=== PATIENT | male | born 1945 | race Caucasian/White ===

== ENCOUNTER 2016-04-30 06:26 | Inpatient (IN) | payer OTHER, BC ==
[~2016-04-30] VITALS: Ht 182.9 cm; Wt 108.2 kg
[~2016-04-30 06:26] MED LIST: ACCOLATE20 MG PO; ADULT LOW DOSE81 M1 PO; ADVAIR 100-501 EACH IH; ADVAIR 250/501 DISK IH; ALBUTEROL SULF8.5 GM IH; ALBUTEROL17 GM IH; ALTACE10 MG PO; AMLODIPINE BESYL5 MG PO; ARICEPT10 MG PO; ASPIR 8181 M1 PO; ASPIR 8181 MG PO; ATROVENT 00.5 MG/2.5 IH; BUDESONIDE0.5 MG/2 M IH; COZAAR50 MG PO; DUONEB 2.5-0.5 M3 ML IH; FLONASE16 G1 BOTH NARES; FLONASE16 GM NS; GLIPIZIDE XL10 MG PO; GLIPIZIDE XL5 MG PO; GLUCOPHAGE1000 MG PO; GLUCOPHAGE500 MG PO; GLUCOTROL XL10 MG PO; LEVAQUIN500 MG PO; LOSARTAN POTASS50 MG PO; OMEPRAZOLE40 M1 PO; PREDNISONE10 MG PO; PREDNISONE20 MG PO; PREVACID30 MG PO; PROAIR RESPICL90 MCG IH; QUALAQUIN324 MG PO; SIMVASTATIN80 MG PO; SPIRIVA1 INHALATI IH; TAMIFLU75 MG PO; THEO-DUR,THEOC200 MG PO; VENTOLIN HFA18 GM IH; VENTOLIN17 GM IH; VENTOLIN5 MG/1 ML; VITAMIN B-12500 MC5 SL; Vibramycin, Doryx PO; ZITHROMAX250 MG PO; ZOCOR80 MG PO; ZOFRAN4 MG PO; albuterol sulfate IH; predniSONE PO
[2016-04-30 07:16] LABS: EOSINOPHIL (%) 5.1 % (0-5); EOSINOPHIL COUNT 0.4 K/uL (0-0.3); HEMATOCRIT 42.7 % (38.0-50.0); IMMATURE GRANULOCYTE (%) 0.1 % (0.0-0.7); IMMATURE GRANULOCYTE COUNT 0.1 K/uL; LYMPHOCYTE COUNT 2.2 K/uL (1.0-2.8); MCH 32.4 PG (29.0-34.0); MCHC 35.1 G/DL (30.0-36.0); MCV 92.2 FL (86-99); MEAN PLAT.VOLUME 9.1 uM^3 (9.0-12.4); MONOCYTE (%) 9.1 % (3-12); MONOCYTE COUNT 0.7 K/uL (0-0.8); NEUTROPHIL (%) 55.7 % (45-76); NEUTROPHIL COUNT 4.2 K/uL (1.8-6.4); PLATELET COUNT 243 K/uL (156-360); RBC DIS.WIDTH-CV 12.7 % (11.8-14.6); RBC DIS.WIDTH-SD 41.7 % (39-53); RED BLOOD COUNT 4.63 M/uL (4.00-5.50); WHITE BLOOD COUNT 7.5 K/uL (4.1-10.2)
[2016-04-30 07:28] LABS: PROTHROMBIN TIME 10.6 (9.2-11.2); PTT 27.4 (25-32)
[2016-04-30 07:44] LABS: AMYLASE 28 IU/L (1-118); ANION GAP 10 MEQ/L (2-14); CHLORIDE 101 MEQ/L (99-109); POTASSIUM 4.5 MEQ/L (3.7-5.4); SAMPLE HEMOLYSIS CHECK 0; SAMPLE ICTERIC CHECK 0; SAMPLE LIPEMIA CHECK 0; SODIUM 139 MEQ/L (136-147)
[2016-04-30 07:49] LABS: TROP-I INTERPRETATION INDETERMINATE
[2016-04-30 07:54] LABS: TROPONIN-I 0.59 ng/mL (0.0-0.30)
[2016-04-30 08:09] LABS: GFR ESTIMATE (CALCULATED) 58 mL/min/; GLUCOSE 307 mg/dL (70-99); LIPASE 37 U/L (1.0-51.0); SERUM ETHYL ALCOHOL < 10 mg/dL; UREA NITROGEN (BUN) 23 mg/dL (9-23)
[2016-04-30] MEDS ORDERED: REMERON15 M2 PO (09:08)
[2016-04-30] MEDS ORDERED: NORCO 5/3251 TABLET PO (09:09)
[2016-04-30] MEDS ORDERED: CENTRUM SILVER1 EAC5 PO (09:10)
[2016-04-30] MEDS ORDERED: ZANAFLEX4 M1 PO (09:11)
[2016-04-30 12:06] LABS: TROP-I INTERPRETATION POSITIVE
[2016-04-30 12:13] LABS: TROPONIN-I 6.29 ng/mL (0.0-0.30)
[2016-04-30 15:09] LABS: POINT-OF-CARE METER ID UU13113819
[2016-04-30 18:05] LABS: POINT-OF-CARE METER ID UU13113819
[2016-04-30 19:30] VITALS: BP 143/92
[2016-04-30 19:51] VITALS: BP 143/92
[2016-04-30 20:15] LABS: TROP-I INTERPRETATION POSITIVE
[2016-04-30 20:17] LABS: TROPONIN-I 41.12 ng/mL (0.0-0.30)
[2016-04-30 22:11] LABS: POINT-OF-CARE METER ID UU13113781
[2016-05-01] VITALS: BP 131/77
[2016-05-01 04:00] VITALS: BP 128/78
[2016-05-01 06:42] LABS: HEMATOCRIT 40.3 % (38.0-50.0); MCH 32.2 PG (29.0-34.0); MCHC 34.2 G/DL (30.0-36.0); MCV 94.2 FL (86-99); PLATELET COUNT 198 K/uL (156-360); RBC DIS.WIDTH-CV 12.8 % (11.8-14.6); RBC DIS.WIDTH-SD 43.7 % (39-53); RED BLOOD COUNT 4.28 M/uL (4.00-5.50); WHITE BLOOD COUNT 8.6 K/uL (4.1-10.2)
[2016-05-01 07:30] LABS: ANION GAP 8 MEQ/L (2-14); CHLORIDE 105 MEQ/L (99-109); GFR ESTIMATE (CALCULATED) > 59 mL/min/; GLUCOSE 209 mg/dL (70-99); POTASSIUM 4.6 MEQ/L (3.7-5.4); SAMPLE HEMOLYSIS CHECK 1; SAMPLE ICTERIC CHECK 0; SAMPLE LIPEMIA CHECK 0; SODIUM 136 MEQ/L (136-147); UREA NITROGEN (BUN) 17 mg/dL (9-23)
[2016-05-01] MEDS ORDERED: CLOPIDOGREL75 MG PO (12:16)
[2016-05-01] MEDS ORDERED: LOPRESSOR25 MG PO (12:16)
[2016-05-01] MEDS ORDERED: NITROSTAT0.4 MG SL (12:16)
[2016-05-01] MEDS ORDERED: NOVOLOG PE100 UNITS/ SC (12:17)
[2016-05-01] MEDS ORDERED: DIOVAN80 MG PO (12:21)
== END 2016-05-01 14:13 | disposition short-term general hospital (02) | DRG 282 ==
LOC: EME → EDBD 06:26 → EME 06:26 → EDOF 08:53 → 4EAST 19:26
PROVIDERS: Emergency Medicine; Family Medicine; Internal Medicine Cardiovascular Disease
DX: I21.4 Non-ST elevation (NSTEMI) myocardial infarction (principal); I25.110 Atherosclerotic heart disease of native coronary artery with unstable angina pectoris; E11.65 Type 2 diabetes mellitus with hyperglycemia; I25.84 Coronary atherosclerosis due to calcified coronary lesion; I35.0 Nonrheumatic aortic (valve) stenosis; J44.9 Chronic obstructive pulmonary disease, unspecified; I10 Essential (primary) hypertension; F03.90 Unspecified dementia, unspecified severity, without behavioral disturbance, psychotic disturbance, mood disturbance, and anxiety; E78.5 Hyperlipidemia, unspecified; E66.9 Obesity, unspecified; Z68.32 Body mass index [BMI] 32.0-32.9, adult; Z87.891 Personal history of nicotine dependence; Z86.73 Personal history of transient ischemic attack (TIA), and cerebral infarction without residual deficits; Z85.828 Personal history of other malignant neoplasm of skin
CPT/HCPCS: 80048; 81003; 82150; 82948; 83690; 84484; 85025; 85027; 85610; 85730; 86850; 86900; 86901; 93005; 93306; 94640; 94640 76; 99202; 99281; 99285; C1750; C1769; C1887; G0480; J1644; J1815; J2250; J2270; J3010; J7030; J7050

== ENCOUNTER 2016-09-15 18:51 | Emergency (ER) | payer OTHER, BC ==
[~2016-09-15] VITALS: Ht 182.9 cm; Wt 99.0 kg
[~2016-09-15 18:51] MED LIST changes: +CENTRUM SILVER1 EAC5 PO; +CLOPIDOGREL75 MG PO; +DIOVAN80 MG PO; +LOPRESSOR25 MG PO; +NITROSTAT0.4 MG SL; +NORCO 5/3251 TABLET PO; +NOVOLOG PE100 UNITS/ SC; +REMERON15 M2 PO; +ZANAFLEX4 M1 PO
[2016-09-15 19:19] LABS: HEMATOCRIT 42.6 % (38.0-50.0); MCH 31.9 PG (29.0-34.0); MCHC 34.7 G/DL (30.0-36.0); MCV 91.8 FL (86-99); PLATELET COUNT 217 K/uL (156-360); RBC DIS.WIDTH-CV 13.1 % (11.8-14.6); RBC DIS.WIDTH-SD 44.1 % (39-53); RED BLOOD COUNT 4.64 M/uL (4.00-5.50); WHITE BLOOD COUNT 7.5 K/uL (4.1-10.2)
[2016-09-15 19:26] LABS: CHLORIDE 109 mEq/L (99-109); POTASSIUM 3.5 mEq/L (3.7-5.4); SODIUM 140 mEq/L (136-147)
[2016-09-15 19:29] LABS: GLUCOSE 210 mg/dL (70-99)
[2016-09-15 19:30] LABS: ANION GAP 14 MEQ/L (2-14)
[2016-09-15 19:31] LABS: TOTAL BILIRUBIN 0.4 mg/dL (0.0-1.0)
[2016-09-15 19:32] LABS: ALKALINE PHOSPHATASE 81 IU/L (3-129); SERUM ETHYL ALCOHOL 205 mg/dL
[2016-09-15 19:33] LABS: GFR ESTIMATE (CALCULATED) 35 mL/min/
[2016-09-15 19:34] LABS: UREA NITROGEN (BUN) 22 mg/dL (9-23)
[2016-09-15 20:41] LABS: ADD MIUA? YES; BILIRUBIN NEGATIVE; BLOOD MODERATE; COLOR STRAW ((YELLOW)); GLUCOSE (STRIP) >=500; KETONES NEGATIVE; LEUKOCYTES NEGATIVE; NITRITE NEGATIVE; PROTEIN (STRIP) 30; SPECIFIC GRAVITY 1.005 (1.000-1.030); UROBILINOGEN 0.2 MG/DL (0.2-1.0)
[2016-09-15 21:05] LABS: AMPHETAMINE NEGATIVE (500 ng/mL); BARBITURATES NEGATIVE (200 ng/mL); BENZODIAZEPINES NEGATIVE (150 ng/mL); COCAINE NEGATIVE (150 ng/mL); INTERNAL CONTROLS VALID? YES; METHADONE NEGATIVE (200 ng/mL); METHAMPHETAMINE NEGATIVE (500 ng/mL); OPIATES (MORPHINE) NEGATIVE (100 ng/mL); OXYCODONE NEGATIVE (100 ng/mL); PHENCYCLIDINE NEGATIVE (25 ng/mL); PROPOXYPHENE NEGATIVE (300 ng/mL); THC CANNABINOIDS NEGATIVE (50 ng/mL); TRICYCLIC ANTIDEPRESSANTS NEGATIVE (300 ng/mL)
[2016-09-15 21:07] LABS: BACTERIA RARE /HPF; EPITHELIAL CELLS RARE /HPF; MUCUS TRACE /LPF; RED BLOOD CELLS 0-5 /HPF (0-5); WHITE BLOOD CELLS 0-5 /HPF (0-5)
[2016-09-15 21:11] LABS: CASTS PRESENT /LPF; GRANULAR CASTS RARE /LPF
[2016-09-16 00:36] VITALS: BP 159/83
== END 2016-09-16 00:49 | disposition home or self-care (01) ==
LOC: EME 18:51
PROVIDERS: Emergency Medicine
DX: F32.9 Major depressive disorder, single episode, unspecified (principal); F10.129 Alcohol abuse with intoxication, unspecified; Y90.7 Blood alcohol level of 200-239 mg/100 ml; R45.851 Suicidal ideations; J44.9 Chronic obstructive pulmonary disease, unspecified; E78.5 Hyperlipidemia, unspecified; I10 Essential (primary) hypertension; I25.2 Old myocardial infarction; K21.9 Gastro-esophageal reflux disease without esophagitis; Z86.73 Personal history of transient ischemic attack (TIA), and cerebral infarction without residual deficits; Z79.82 Long term (current) use of aspirin; Z87.891 Personal history of nicotine dependence
CPT/HCPCS: 80053; 81003; 85027; 90837; 99281; 99285; G0480

== ENCOUNTER 2017-11-15 00:03 | Emergency (ER) | payer OTHER, BC ==
[~2017-11-15] VITALS: Ht 182.9 cm; Wt 114.0 kg
[~2017-11-15 00:03] MED LIST changes: +CRESTOR40 MG PO; -ZOCOR80 MG PO
[2017-11-15 00:40] LABS: BASOPHIL (%) 1.1 % (0-1); BASOPHIL COUNT 0.1 K/uL (0-0.1); EOSINOPHIL COUNT 0.6 K/uL (0-0.3); HEMATOCRIT 37.7 % (38.0-50.0); HEMOGLOBIN 12.7 G/DL (12.5-16.6); IMMATURE GRANULOCYTE (%) 0.3 % (0.0-0.7); LYMPHOCYTE (%) 37.6 % (15-42); LYMPHOCYTE COUNT 2.4 K/uL (1.0-2.8); MCH 31.8 PG (29.0-34.0); MCHC 33.7 G/DL (30.0-36.0); MCV 94.5 FL (86-99); MONOCYTE (%) 10.1 % (3-12); MONOCYTE COUNT 0.6 K/uL (0-0.8); NEUTROPHIL (%) 41.9 % (45-76); NEUTROPHIL COUNT 2.7 K/uL (1.8-6.4); PLATELET COUNT 206 K/uL (156-360); RBC DIS.WIDTH-CV 13.2 % (11.8-14.6); RBC DIS.WIDTH-SD 46.5 % (39-53); RED BLOOD COUNT 3.99 M/uL (4.00-5.50); WHITE BLOOD COUNT 6.3 K/uL (4.1-10.2)
[2017-11-15 00:52] LABS: PTT 25.3 SEC (25-37)
[2017-11-15 01:03] LABS: TROP-I INTERPRETATION NEGATIVE; TROPONIN-I 0.04 ng/mL (0.0-0.30)
[2017-11-15 01:06] LABS: ALBUMIN 3.8 G/DL (3.2-4.8); ALKALINE PHOSPHATASE 59 IU/L (3-129); ALT (GPT) 23 IU/L (3-49); AST (GOT) 26 IU/L (2-34); CHLORIDE 103 MEQ/L (99-109); DIRECT BILIRUBIN 0.2 mg/dL (0.0-0.3); GLUCOSE 149 mg/dL (70-99); POTASSIUM 3.7 MEQ/L (3.7-5.4); SODIUM 138 MEQ/L (136-147); TOTAL BILIRUBIN 0.6 MG/DL (0.0-1.0); TOTAL PROTEIN 6.2 G/DL (6.4-8.3); UREA NITROGEN (BUN) 18 mg/dL (9-23)
[2017-11-15 01:59] LABS: CREATININE 1.7 MG/DL (0.6-1.3); GFR ESTIMATE (CALCULATED) 42 mL/min/ (58.99-99999)
[2017-11-15] MEDS ORDERED: PREDNISONE50 MG PO (02:33)
[2017-11-15 02:45] VITALS: BP 130/82
[2017-11-15] MEDS ORDERED: PROVENTIL,2.5 MG/3 M IH (16:18)
[2017-11-15] MEDS ORDERED: ADVIL,NUPRIN,M200 MG PO (16:29)
[2017-11-15] MEDS ORDERED: LANTUS 3 M100 UNITS1 SC ×4 (16:42→17:17)
[2017-11-15] MEDS ORDERED: IPRATROPIUM BRO30 ML BOTH NARES (17:10)
[2017-11-15] MEDS ORDERED: METOPROLOL SUCC50 MG PO (17:11)
[2017-11-15] MEDS ORDERED: ATROVENT 00.5 MG/2.5 IH (17:16)
[2017-11-15] MEDS ORDERED: VIAGRA100 MG PO (17:18)
[2017-11-15] MEDS ORDERED: SAW PALMETTO160 MG PO (17:19)
[2017-11-15] MEDS ORDERED: ALLEGRA60 MG PO (17:20)
== END 2017-11-15 02:57 | disposition home or self-care (01) ==
LOC: EME 00:03
PROVIDERS: Emergency Medicine
DX: J44.1 Chronic obstructive pulmonary disease with (acute) exacerbation (principal); I45.10 Unspecified right bundle-branch block; R94.31 Abnormal electrocardiogram [ECG] [EKG]; R91.8 Other nonspecific abnormal finding of lung field; I10 Essential (primary) hypertension; E11.9 Type 2 diabetes mellitus without complications; K21.9 Gastro-esophageal reflux disease without esophagitis; E78.5 Hyperlipidemia, unspecified; I25.2 Old myocardial infarction; F03.90 Unspecified dementia, unspecified severity, without behavioral disturbance, psychotic disturbance, mood disturbance, and anxiety; Z79.82 Long term (current) use of aspirin; Z79.84 Long term (current) use of oral hypoglycemic drugs; Z87.891 Personal history of nicotine dependence; Z86.73 Personal history of transient ischemic attack (TIA), and cerebral infarction without residual deficits; Z85.828 Personal history of other malignant neoplasm of skin
CPT/HCPCS: 71046; 80048; 80076; 83605; 83880; 84484; 85025; 85610; 85730; 93005; 94640; 99281; 99285; J2930

== ENCOUNTER 2017-11-15 09:46 | Inpatient (IN) | payer OTHER, BC ==
[~2017-11-15] VITALS: Ht 182.9 cm; Wt 114.0 kg
[~2017-11-15 09:46] MED LIST changes: +PREDNISONE50 MG PO
[2017-11-15 10:32] LABS: HEMATOCRIT 40.7 % (38.0-50.0); HEMOGLOBIN 13.8 G/DL (12.5-16.6); MCHC 33.9 G/DL (30.0-36.0); MCV 94.4 FL (86-99); PLATELET COUNT 235 K/uL (156-360); RBC DIS.WIDTH-CV 13.1 % (11.8-14.6); RBC DIS.WIDTH-SD 44.9 % (39-53); RED BLOOD COUNT 4.31 M/uL (4.00-5.50); WHITE BLOOD COUNT 6.8 K/uL (4.1-10.2)
[2017-11-15 10:56] LABS: CHLORIDE 103 MEQ/L (99-109); SODIUM 138 MEQ/L (136-147)
[2017-11-15 10:59] LABS: POTASSIUM 4.9 MEQ/L (3.7-5.4)
[2017-11-15 11:01] LABS: CREATININE 1.6 MG/DL (0.6-1.3); GFR ESTIMATE (CALCULATED) 46 mL/min/ (58.99-99999); UREA NITROGEN (BUN) 20 mg/dL (9-23)
[2017-11-15 11:05] LABS: GLUCOSE 246 mg/dL (70-99)
[2017-11-15 15:06] VITALS: BP 168/80
[2017-11-15] MEDS ORDERED: PROVENTIL,2.5 MG/3 M IH (16:18)
[2017-11-15] MEDS ORDERED: ADVIL,NUPRIN,M200 MG PO (16:29)
[2017-11-15] MEDS ORDERED: LANTUS 3 M100 UNITS1 SC ×4 (16:42→17:17)
[2017-11-15] MEDS ORDERED: IPRATROPIUM BRO30 ML BOTH NARES (17:10)
[2017-11-15] MEDS ORDERED: METOPROLOL SUCC50 MG PO (17:11)
[2017-11-15] MEDS ORDERED: ATROVENT 00.5 MG/2.5 IH (17:16)
[2017-11-15] MEDS ORDERED: VIAGRA100 MG PO (17:18)
[2017-11-15] MEDS ORDERED: SAW PALMETTO160 MG PO (17:19)
[2017-11-15] MEDS ORDERED: ALLEGRA60 MG PO (17:20)
[2017-11-15 19:38] VITALS: BP 141/84
[2017-11-15 23:27] VITALS: BP 147/78
[2017-11-16 04:58] VITALS: BP 147/74
[2017-11-16 05:39] LABS: BASOPHIL (%) 0.1 % (0-1); EOSINOPHIL (%) 0 % (0-5); HEMATOCRIT 37.4 % (38.0-50.0); HEMOGLOBIN 12.4 G/DL (12.5-16.6); IMMATURE GRANULOCYTE (%) 0.8 % (0.0-0.7); LYMPHOCYTE COUNT 0.8 K/uL (1.0-2.8); MCH 31.6 PG (29.0-34.0); MCHC 33.2 G/DL (30.0-36.0); MCV 95.4 FL (86-99); MONOCYTE (%) 2.8 % (3-12); MONOCYTE COUNT 0.2 K/uL (0-0.8); NEUTROPHIL (%) 86.3 % (45-76); NEUTROPHIL COUNT 7.1 K/uL (1.8-6.4); PLATELET COUNT 220 K/uL (156-360); RBC DIS.WIDTH-SD 45.1 % (39-53); RED BLOOD COUNT 3.92 M/uL (4.00-5.50); WHITE BLOOD COUNT 8.2 K/uL (4.1-10.2)
[2017-11-16 05:58] LABS: CHLORIDE 104 MEQ/L (99-109); CREATININE 1.4 MG/DL (0.6-1.3); GFR ESTIMATE (CALCULATED) 53 mL/min/ (58.99-99999); GLUCOSE 300 mg/dL (70-99); POTASSIUM 4.7 MEQ/L (3.7-5.4); SODIUM 138 MEQ/L (136-147); UREA NITROGEN (BUN) 23 mg/dL (9-23)
[2017-11-16 07:33] VITALS: BP 129/69
[2017-11-16 11:18] VITALS: BP 140/67
[2017-11-16 15:57] VITALS: BP 119/66
[2017-11-16 19:15] VITALS: BP 127/58
[2017-11-16 23:31] VITALS: BP 130/68
[2017-11-17 06:14] LABS: BASOPHIL (%) 0 % (0-1); EOSINOPHIL (%) 0 % (0-5); HEMATOCRIT 39.1 % (38.0-50.0); HEMOGLOBIN 13.1 G/DL (12.5-16.6); IMMATURE GRANULOCYTE (%) 0.6 % (0.0-0.7); LYMPHOCYTE (%) 7.8 % (15-42); LYMPHOCYTE COUNT 0.8 K/uL (1.0-2.8); MCH 31.8 PG (29.0-34.0); MCHC 33.5 G/DL (30.0-36.0); MCV 94.9 FL (86-99); MONOCYTE (%) 4.6 % (3-12); MONOCYTE COUNT 0.5 K/uL (0-0.8); NEUTROPHIL COUNT 9.2 K/uL (1.8-6.4); PLATELET COUNT 243 K/uL (156-360); RBC DIS.WIDTH-CV 13.1 % (11.8-14.6); RBC DIS.WIDTH-SD 45.3 % (39-53); RED BLOOD COUNT 4.12 M/uL (4.00-5.50); WHITE BLOOD COUNT 10.5 K/uL (4.1-10.2)
[2017-11-17 06:31] LABS: CHLORIDE 103 MEQ/L (99-109); CREATININE 1.6 MG/DL (0.6-1.3); GFR ESTIMATE (CALCULATED) 46 mL/min/ (58.99-99999); GLUCOSE 373 mg/dL (70-99); SODIUM 136 MEQ/L (136-147); UREA NITROGEN (BUN) 34 mg/dL (9-23)
[2017-11-17 07:54] VITALS: BP 141/64
[2017-11-17 17:31] VITALS: BP 149/84
[2017-11-17 23:43] VITALS: BP 147/71
[2017-11-18 05:57] LABS: BASOPHIL (%) 0 % (0-1); EOSINOPHIL (%) 0 % (0-5); HEMATOCRIT 38.6 % (38.0-50.0); IMMATURE GRANULOCYTE (%) 0.8 % (0.0-0.7); LYMPHOCYTE (%) 6.2 % (15-42); LYMPHOCYTE COUNT 0.6 K/uL (1.0-2.8); MCH 31.7 PG (29.0-34.0); MCHC 33.7 G/DL (30.0-36.0); MCV 94.1 FL (86-99); MONOCYTE (%) 4.7 % (3-12); MONOCYTE COUNT 0.5 K/uL (0-0.8); NEUTROPHIL (%) 88.3 % (45-76); NEUTROPHIL COUNT 8.7 K/uL (1.8-6.4); PLATELET COUNT 264 K/uL (156-360); RBC DIS.WIDTH-CV 12.9 % (11.8-14.6); RBC DIS.WIDTH-SD 44.6 % (39-53); WHITE BLOOD COUNT 9.8 K/uL (4.1-10.2)
[2017-11-18 06:24] LABS: CHLORIDE 101 MEQ/L (99-109); CREATININE 1.6 MG/DL (0.6-1.3); GFR ESTIMATE (CALCULATED) 46 mL/min/ (58.99-99999); GLUCOSE 395 mg/dL (70-99); POTASSIUM 4.9 MEQ/L (3.7-5.4); SODIUM 137 MEQ/L (136-147); UREA NITROGEN (BUN) 35 mg/dL (9-23)
[2017-11-18 08:36] VITALS: BP 148/79
[2017-11-18 13:30] VITALS: BP 162/71
[2017-11-18] MEDS ORDERED: PREDNISONE10 MG PO (13:46)
[2017-11-18] MEDS ORDERED: LEVAQUIN500 MG PO (13:46)
[2017-11-18 14:00] LABS: GLUCOSE 508 mg/dL (70-99)
== END 2017-11-18 18:38 | disposition home or self-care (01) | DRG 190 ==
LOC: EME 09:46 → 3EAST 12:50 → EDOF 12:50 → ENRESERV 12:59 → CANRESERV 12:59 → ENRESERV 13:29 → 3EAST 14:26
PROVIDERS: Family Medicine
DX: J44.1 Chronic obstructive pulmonary disease with (acute) exacerbation (principal); J18.9 Pneumonia, unspecified organism; J44.0 Chronic obstructive pulmonary disease with (acute) lower respiratory infection; E11.9 Type 2 diabetes mellitus without complications; E78.5 Hyperlipidemia, unspecified; E66.9 Obesity, unspecified; I25.10 Atherosclerotic heart disease of native coronary artery without angina pectoris; I10 Essential (primary) hypertension; F03.90 Unspecified dementia, unspecified severity, without behavioral disturbance, psychotic disturbance, mood disturbance, and anxiety; I25.2 Old myocardial infarction; Z68.34 Body mass index [BMI] 34.0-34.9, adult; Z91.5 Personal history of self-harm; Z87.891 Personal history of nicotine dependence; Z86.73 Personal history of transient ischemic attack (TIA), and cerebral infarction without residual deficits
CPT/HCPCS: 36415; 80048; 80048 91; 80053; 80061; 82043; 82570; 82948; 83036; 84443; 84999; 85025; 85027; 94640; 94799; 99281; 99284; J1815; J1956; J2930; J7030